=== PATIENT | male | born 1965 | race Caucasian/White ===

== ENCOUNTER 2017-08-11 20:15 | Emergency (ER) | payer BC, OTHER ==
--- NOTE | 2017-08-12 00:32 | EDM.PDOC ---
ED HPI GENERAL MEDICAL PROBLEM - General Chief Complaint: Lower Extremity Injury/Pain Stated Complaint: R LEG SWOLLEN AND INFLAMED Time Seen by Provider: 08/11/17 20:52 Source of Information: Reports: Patient, Family (), RN Notes Reviewed History Limitations: Reports: No Limitations - History of Present Illness INITIAL COMMENTS - FREE TEXT/NARRATIVE: The patient states that he developed a "soreness" to his mid-medial right thigh this past 08/07/2017. Yesterday, 08/10/2017 he found a red streak and some swelling to his right medial thigh, along with increased discomfort. Tonight the patient states that the area is considerably more sore, along with increased erythema and swelling. He denies recent fever. No recent dyspnea or palpitations. No known injury to the area, including no known insect bite. No prior similar symptoms. The patient has not attempted any home remedies or treatments. The patient's PCP is Imelda Chakraborty, who has not been notified of this event. Right Upper Leg Pain Score (Numeric/FACES): 3 - Related Data Allergies Allergy/AdvReac Type Severity Reaction Status Date / Time No Known Allergies Allergy Verified 08/11/17 20:42 Home Meds: Home Meds Cephalexin [Keflex] 500 mg PO Q6HR #20 cap 08/12/17 [Rx] Past Medical History Cardiovascular History: Reports: High Cholesterol (untreated) Endocrine/Metabolic History: Reports: Obesity/BMI 30+ Hematologic History: Reports: Hemochromatosis - Past Surgical History HEENT Surgical History: Reports: Oral Surgery (Bono teeth extraction) Musculoskeletal Surgical History: Reports: Other (See Below) (Right 5th finger pinning) Social & Family History - Tobacco Use Smoking Status *Q: Never Smoker - Alcohol Use Alcohol Use History: Yes Alcohol Use Frequency: Socially - Recreational Drug Use Recreational Drug Use: No - Living Situation & Occupation Living situation: Reports: , with Spouse, with Family (4 kids) Occupation: Employed ([employer]) Review of Systems - Review of Systems Review Of Systems: See Below Constitutional: Reports: No Symptoms Eyes: Reports: No Symptoms Ears: Reports: No Symptoms Nose: Reports: No Symptoms Mouth/Throat: Reports: No Symptoms Respiratory: Reports: No Symptoms Cardiovascular: Reports: No Symptoms GI/Abdominal: Reports: No Symptoms Genitourinary: Reports: No Symptoms Musculoskeletal: Reports: No Symptoms Skin: Reports: No Symptoms Neurological: Reports: No Symptoms Psychiatric: Reports: No Symptoms ED EXAM, GENERAL - Physical Exam Exam: See Below Exam Limited By: No Limitations General Appearance: Alert, WD/WN, No Apparent Distress Eye Exam: Bilateral Eye: Normal Inspection Ears: Normal External Exam, Hearing Grossly Normal Nose: Normal Inspection, No Blood Throat/Mouth: Normal Inspection, Normal Lips, Normal Voice, No Airway Compromise Head: Atraumatic, Normocephalic Neck: Normal Inspection, Full Range of Motion Respiratory/Chest: No Respiratory Distress, Lungs Clear, Normal Breath Sounds, No Accessory Muscle Use Cardiovascular: Normal Peripheral Pulses, Regular Rate, Rhythm, No Gallop, No JVD, No Murmur, No Rub Peripheral Pulses: 4+: Radial (L), Radial (R) GI/Abdominal: Normal Bowel Sounds, Soft, Non-Tender, No Organomegaly, No Distention, No Abnormal Bruit, No Mass, Other (Obese) (Male) Exam: Deferred Rectal (Males) Exam: Deferred Back Exam: Normal Inspection, Full Range of Motion, NT Extremities: Normal Range of Motion, Normal Capillary Refill, Other (There is an approximately 12 cm x 8 cm area of erythema to the medial aspect of the patient's right mid thigh, with induration within that area measuring approximately 8 cm diameter. No fluctuance is palpated. There is no "pointing" noted.) Neurological: Alert, Oriented, Normal Cognition, No Motor/Sensory Deficits Psychiatric: Normal Affect Skin Exam: Warm, Dry, Intact, Normal Color, No Rash Course - Vital Signs Last Recorded V/S: Last Vital Signs Temp 36.2 C 08/11/17 20:42 Pulse 83 08/11/17 20:42 Resp BP 163/99 H 08/11/17 20:42 Pulse Ox 96 08/11/17 20:42 - Orders/Labs/Meds Meds: Medications Discontinued Medications Generic Name Dose Route Start Last Admin Trade Name Freq PRN Reason Stop Dose Admin Cephalexin 500 mg 08/12/17 00:35 08/12/17 00:46 Keflex PO 08/12/17 00:36 500 mg ONETIME ONE Administration - Re-Assessments/Exams Free Text/Narrative Re-Assessment/Exam: 08/12/17 00:26 Doppler ultrasound of the right lower extremity is read by [facility] as: No evidence for right lower extremity DVT, however the distal right femoral vein is difficult to evaluate. There is subcutaneous edema and redness in the thigh region. Correlate with any symptoms of cellulitis. 08/12/17 00:32 Doppler results discussed with the patient and his . Because the patient does not have a blood clot, I suspect that this is a local inflammatory reaction to an insect bite, and less likely, cellulitis. I'm recommending the patient take an antihistamine such as Benadryl or Claritin, and apply ice packs to the area several times a day. Local inflammatory reactions may take 10-12 days to resolve. In the meantime, I will also treat with oral Keflex. If this resolves in about 5 days, that it was an infection. If it takes 10-12 days to resolve, it's a local inflammatory reaction to an insect bite, and the patient can expect the same or worse with future insect bites. Departure - Departure Time of Disposition: 00:35 Disposition: Home, Self-Care 01 Condition: Good Clinical Impression: Local reaction to insect sting - Discharge Information Prescriptions: Cephalexin [Keflex] 500 mg PO Q6HR #20 cap Instructions: Insect Bite, [id number] Referrals: Heidi Chakraborty, BILL OF MATERIALS CLERK [Primary Care Provider] - Forms: ED Department Discharge Additional Instructions: You were seen in the emergency room for a sore red swelling on your inner right thigh. Workup in the ER included a Doppler ultrasound of your right lower extremity. The Doppler ultrasound was negative for a blood clot. You are MOST LIKELY suffering from a local inflammatory reaction to an insect bite. Treatment includes antihistamines, either sedating or nonsedating, and ice packs for 10-15 minutes, 4-5 times a day. Local inflammatory reactions often take 10-12 days to resolve, and you should expect the same severity, or worse, the next time you're bitten by an insect. Less likely, you have a skin infection known as cellulitis. You have been started on the antibiotic Keflex. Take one tablet every 6 hours, as prescribed. If any other problems, please do not hesitate to return to the ER.
[2017-08-12] MEDS ORDERED: Cephalexin 500 MG Cap PO ONE (00:35)
--- NOTE | 2017-08-12 08:21 | US ---
Right lower extremity deep venous ultrasound: Duplex and color flow imaging was obtained of the right common femoral, proximal greater saphenous, superficial femoral, popliteal, posterior tibial and peroneal veins. Left common femoral vein was also evaluated. Findings: Distal right superficial femoral vein was not well seen. Other veins show normal phasic flow, augmentation and compression. Impression: 1. Distal right common femoral vein is not well seen. Other portions of the deep veins of the right lower extremity and left common femoral vein show no evidence of deep venous thrombosis. Diagnostic code #2 I agree with preliminary report issued by [facility] ([facility] preliminary report dictated on 08/12/17, 12:05 AM Central Time)
== END 2017-08-12 00:47 | disposition home or self-care (01) ==
LOC: JD.ED 20:15
DX: S70.361A Insect bite (nonvenomous), right thigh, initial encounter (principal); E78.00 Pure hypercholesterolemia, unspecified; E66.9 Obesity, unspecified; W57.XXXA Bitten or stung by nonvenomous insect and other nonvenomous arthropods, initial encounter
CPT/HCPCS: 93971; 99283; A9270

== ENCOUNTER 2020-12-26 06:48 | Emergency (ER) | payer OTHER ==
[2020-12-26] MEDS ORDERED: Sodium Chloride 0.9% 10 ML Syringe FLUSH PRN (07:12)
[2020-12-26] MEDS ORDERED: Ketorolac 30 MG/ML SDV IVPUSH ONE (07:19)
[2020-12-26] MEDS ORDERED: Metoclopramide 10 MG/2 ML SDV IVPUSH ONE (07:19)
[2020-12-26] MEDS ORDERED: diphenhydrAMINE 50 MG/ML SDV IVPUSH ONE (07:19)
--- NOTE | 2020-12-26 07:19 | EDM.PDOC ---
ED HPI GENERAL MEDICAL PROBLEM - General Chief Complaint: Cardiovascular Problem Stated Complaint: HIGH BP Time Seen by Provider: 12/26/20 06:56 Source of Information: Reports: Patient History Limitations: Reports: No Limitations - History of Present Illness INITIAL COMMENTS - FREE TEXT/NARRATIVE: The patient presents with a headache and hypertension. He woke up at about 2am with a headache and some nausea. His took his BP and it was elevated in the 170s. He usually does not get headaches. The pain is in the frontal region. He has no fever, chills, cough, chest pain, shortness of breath, abdominal pain, numbness or weakness. He has no history of hypertension. Onset: Sudden Duration: Hour(s): Location: Reports: Head Quality: Reports: Ache Severity: Moderate Improves with: Reports: None Worsens with: Reports: None Associated Symptoms: Reports: Headaches, Nausea/Vomiting. Denies: Chest Pain, Cough, Fever/Chills, Shortness of Breath Treatments [employer]: Reports: Acetaminophen Frontal Headache Pain Score (Numeric/FACES): 7 - Related Data Allergies Allergy/AdvReac Type Severity Reaction Status Date / Time No Known Allergies Allergy Verified 12/26/20 06:57 Home Meds: Home Meds hydroCHLOROthiazide [Hydrochlorothiazide] 25 mg PO DAILY #30 tab 12/26/20 [Rx] Past Medical History - Past Health History Medical/Surgical History: Denies Medical/Surgical History HEENT History: Reports: Impaired Vision Cardiovascular History: Reports: High Cholesterol, Hypertension Respiratory History: Reports: None Gastrointestinal History: Reports: None Genitourinary History: Reports: None Neurological History: Reports: None Psychiatric History: Reports: None Endocrine/Metabolic History: Reports: Obesity/BMI 30+ Hematologic History: Reports: Hemochromatosis Immunologic History: Reports: None Oncologic (Cancer) History: Reports: None Dermatologic History: Reports: Other (See Below) Other Dermatologic History: rash on his legs has been told too much iron in his blood - Infectious Disease History Infectious Disease History: Reports: Chicken Pox, Influenza, Novel Coronavirus - Past Surgical History HEENT Surgical History: Reports: Oral Surgery Musculoskeletal Surgical History: Reports: Other (See Below) Other Musculoskeletal Surgeries/Procedures:: right pinky finger fx Social & Family History - Family History Family Medical History: No Pertinent Family History Cardiac: Reports: CAD Endocrine/Metabolic: Reports: Diabetes, type II - Tobacco Use Tobacco Use Status *Q: Never Tobacco User - Caffeine Use Caffeine Use: Reports: Soda - Recreational Drug Use Recreational Drug Use: No - Living Situation & Occupation Living situation: Reports: , with Spouse, with Family (4 kids) Occupation: Employed ([employer]) ED ROS GENERAL - Review of Systems Review Of Systems: See Below Constitutional: Reports: No Symptoms HEENT: Reports: No Symptoms Respiratory: Reports: No Symptoms Cardiovascular: Reports: No Symptoms Endocrine: Reports: No Symptoms GI/Abdominal: Reports: Nausea. Denies: Abdominal Pain : Reports: No Symptoms Musculoskeletal: Reports: No Symptoms ED EXAM, GENERAL - Physical Exam Exam: See Below Exam Limited By: No Limitations General Appearance: Alert, No Apparent Distress Ears: Normal External Exam Nose: Normal Inspection Head: Atraumatic, Normocephalic Neck: Normal Inspection Respiratory/Chest: No Respiratory Distress, Lungs Clear, Normal Breath Sounds Cardiovascular: Regular Rate, Rhythm, No Edema, No Murmur GI/Abdominal: Soft, Non-Tender, No Organomegaly, No Mass Extremities: Normal Inspection Neurological: Alert, Oriented, No Motor/Sensory Deficits #1 Interpretation EKG Date: 12/26/20 Time: 07:14 Rhythm: NSR Rate (Beats/Min): 60 Isabella: Normal P-Wave: Present QRS: Normal ST-T: Normal QT: Normal EKG Interpretation Comments: Q waves in the anterior leads Course - Vital Signs Last Recorded V/S: Last Vital Signs Temp 97.5 F 12/26/20 07:00 Pulse 63 12/26/20 07:00 Resp 16 12/26/20 07:00 BP 176/112 H 12/26/20 07:00 Pulse Ox 98 12/26/20 07:00 - Orders/Labs/Meds Orders: Active Orders 24 hr Category Date Time Status Cardiac Monitoring [RC] . DIRECTED Care 12/26/20 07:12 Active EKG Documentation Completion [RC] STAT Care 12/26/20 07:13 Active Peripheral IV Care [RC] . DIRECTED Care 12/26/20 07:13 Active Sodium Chloride 0.9% [Saline Flush] Med 12/26/20 07:12 Active 10 ml FLUSH ASDIRECTED PRN Peripheral IV Insertion Adult [OM.PC] Stat Oth 12/26/20 07:12 Ordered Medication Orders Sodium Chloride (Saline Flush) 10 ml FLUSH ASDIRECTED PRN PRN Reason: Keep Vein Open Last Admin: 12/26/20 07:28 Dose: 10 ml Documented by: TIMOTHY Labs: Laboratory Tests 12/26/20 12/26/20 Range/Units 07:15 07:15 WBC 6.83 (4.23-9.07) K/mm3 RBC 5.34 (4.63-6.08) M/mm3 Hgb 15.0 (13.7-17.5) gm/dl Hct 45.5 (40.1-51.0) % MCV 85.2 (79.0-92.2) fl MCH 28.1 (25.7-32.2) pg MCHC 33.0 (32.2-35.5) g/dl RDW Std Deviation 41.2 (35.1-43.9) fL Plt Count 263 (163-337) K/mm3 MPV 8.3 L (9.4-12.3) fl Neut % (Auto) 55.3 (34.0-67.9) % Lymph % (Auto) 29.0 (21.8-53.1) % [place] % (Auto) 10.7 (5.3-12.2) % Eos % (Auto) 4.2 (0.8-7.0) Baso % (Auto) 0.4 (0.1-1.2) % Neut # (Auto) 3.77 (1.78-5.38) K/mm3 Lymph # (Auto) 1.98 (1.32-3.57) K/mm3 [place] # (Auto) 0.73 (0.30-0.82) K/mm3 Eos # (Auto) 0.29 (0.04-0.54) K/mm3 Baso # (Auto) 0.03 (0.01-0.08) K/mm3 Sodium 141 (136-145) mEq/L Potassium 4.4 (3.5-5.1) mEq/L Chloride 103 (98-107) mEq/L Carbon Dioxide 27 (21-32) mEq/L Anion Gap 15.4 H (5-15) BUN 16 (7-18) mg/dL Creatinine 1.1 (0.7-1.3) mg/dL Est Cr Clr Drug Dosing 80.19 mL/min Estimated GFR (MDRD) > 60 (>60) mL/min BUN/Creatinine Ratio 14.5 (14-18) Glucose 113 H (74-106) mg/dL Calcium 9.2 (8.5-10.1) mg/dL Magnesium 2.1 (1.8-2.4) mg/dl Total Bilirubin 0.4 (0.2-1.0) mg/dL AST 31 (15-37) U/L ALT 76 H (16-63) U/L Alkaline Phosphatase 104 (46-116) U/L Troponin I < 0.017 (0.00-0.056) ng/mL Total Protein 7.7 (6.4-8.2) g/dl Albumin 4.0 (3.4-5.0) g/dl Globulin 3.7 gm/dL Albumin/Globulin Ratio 1.1 (1-2) Meds: Medications Generic Name Dose Route Start Last Admin Trade Name Freq PRN Reason Stop Dose Admin Sodium Chloride 10 ml 12/26/20 07:12 12/26/20 07:28 Saline Flush FLUSH 10 ml ASDIRECTED PRN Administration Keep Vein Open Discontinued Medications Generic Name Dose Route Start Last Admin Trade Name Freq PRN Reason Stop Dose Admin Diphenhydramine HCl 50 mg 12/26/20 07:19 12/26/20 07:26 Benadryl IVPUSH 12/26/20 07:20 50 mg ONETIME ONE Administration Ketorolac Tromethamine 30 mg 12/26/20 07:19 12/26/20 07:25 Toradol IVPUSH 12/26/20 07:20 30 mg ONETIME ONE Administration Metoclopramide HCl 10 mg 12/26/20 07:19 12/26/20 07:23 Reglan IVPUSH 12/26/20 07:20 10 mg ONETIME ONE Administration - Re-Assessments/Exams Free Text/Narrative Re-Assessment/Exam: 12/26/20 07:20 I ordered an IV saline lock, EKG, CT of his head, labs, reglan 10mg IV, toradol 30mg IV, and benadryl 50mg IV. 12/26/20 08:25 His EKG shows a NSR at a rate of 60 with no acute changes. The CT of his head shows nothing acute. His CBC and CMP look good. His troponin is negative. His headache is better and so is his blood pressure. I feel he needs to be started on something for blood pressure. I will get him started on some hydrochlorothiazide. Departure - Departure Time of Disposition: 08:30 Disposition: Home, Self-Care 01 Condition: Good Clinical Impression: Headache Qualifiers: Headache type: other headache syndrome Qualified Code(s): G44.89 - Other headache syndrome Hypertension Qualifiers: Hypertension type: essential hypertension Qualified Code(s): I10 - Essential (primary) hypertension Prescriptions: hydroCHLOROthiazide [Hydrochlorothiazide] 25 mg PO DAILY #30 tab Referrals: PCP,None [Primary Care Provider] - Gwendolyn Wise MD [Physician] - 2 Weeks Forms: ED Department Discharge Additional Instructions: Take the hydrochlorothiazide daily. Take tylenol or motrin for any more headaches. Follow up with Dr Wise in our clinic or any other provider in town in a couple weeks. Please return if you are worse. Sepsis Event Note (ED) - Evaluation Sepsis Screening Result: No Definite Risk - Focused Exam Vital Signs: Vital Signs Temp Pulse Resp BP Pulse Ox 12/26/20 07:00 97.5 F 63 16 176/112 H 98 - My Orders Last 24 Hours: My Active Orders 12/26/20 07:12 Cardiac Monitoring [RC] . DIRECTED Sodium Chloride 0.9% [Saline Flush] 10 ml FLUSH ASDIRECTED PRN Peripheral IV Insertion Adult [OM.PC] Stat 12/26/20 07:13 EKG Documentation Completion [RC] STAT Peripheral IV Care [RC] . DIRECTED - Assessment/Plan Last 24 Hours: My Active Orders 12/26/20 07:12 Cardiac Monitoring [RC] . DIRECTED Sodium Chloride 0.9% [Saline Flush] 10 ml FLUSH ASDIRECTED PRN Peripheral IV Insertion Adult [OM.PC] Stat 12/26/20 07:13 EKG Documentation Completion [RC] STAT Peripheral IV Care [RC] . DIRECTED
--- NOTE | 2020-12-26 08:05 | CT ---
Head CT Technique: Multiple axial sections through the brain were obtained. Intravenous contrast was not utilized. Reconstructed coronal and sagittal images were also obtained. Comparison: No prior intracranial imaging is available. Findings: Ventricles along with basal cisterns and sulci over the convexities are within normal limits for the patient's age. No abnormal parenchymal densities are seen. No evidence of intracranial hemorrhage. No midline shift or mass-effect is seen. Bone window settings were reviewed. Visualized mastoid sinuses and paranasal sinuses show nothing acute. No acute calvarial abnormality is appreciated. Impression: 1. Nothing acute is appreciated on noncontrast head CT exam. Diagnostic code #1
== END 2020-12-26 08:56 | disposition home or self-care (01) ==
LOC: JD.ED 06:48
DX: I10 Essential (primary) hypertension (principal); G44.89 Other headache syndrome; E66.9 Obesity, unspecified; Z68.35 Body mass index [BMI] 35.0-35.9, adult; Z79.899 Other long term (current) drug therapy
CPT/HCPCS: 36415; 70450; 80053; 83735; 84484; 85025; 93005; 96374; 96375; 99284; J1200; J1885; J2765; 93010